=== PATIENT | female | born 1970 | race Caucasian/White ===

== ENCOUNTER 2024-11-19 21:27 | Inpatient (IN) | payer MEDICAID, SELFPAY ==
--- NOTE | ~2024-11-19 | XR_ITS ---
CLINICAL HISTORY: hx of TB Chest one view Comparison: None Findings: No consolidation, venous distention, pulmonary edema, pleural effusion or pneumothorax. Normal heart size and mediastinal contour. Mild midthoracic dextroscoliosis. Soft tissues and upper abdomen are unremarkable. IMPRESSION: No acute cardiopulmonary process or features of active inflammation. This document has been electronically signed by: Jass Barreto MD on 11/20/2024 09:32:10
[2024-11-19 21:50] VITALS: BP 146/90; PULSE 84; RESP 16; TEMP 36.4; O2SAT 98
[2024-11-19] MEDS: Perphenazine 4 MG TABLET PO (23:19)
[2024-11-20 01:03] VITALS: BMI 24.7
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
[2024-11-20 07:36] VITALS: BP 136/88; PULSE 80; RESP 16; TEMP 36.4; O2SAT 99
[2024-11-20 07:49] LABS: Ammonia 36 umol/L (13-55)
[2024-11-20 08:00] VITALS: BP 136/88; PULSE 80; RESP 15; TEMP 36.4; O2SAT 99
[2024-11-20 08:44] LABS: Estimated Average Glucose 108 mg/dL; Hemoglobin A1C 114.9114 umol/L; Hemoglobin A1c % 5.4 % (<6.0); Total Hemoglobin (HGBA1C) 3236.6228 umol/L
[2024-11-20 09:16] LABS: Alanine Aminotransferase 16 U/L (0-31); Alkaline Phosphatase 65 U/L (39-117); Anion Gap 9 (12-20); Aspartate Amino Transferase 28 U/L (5-31); Bilirubin Total 1.3 mg/dL (0.0-1.0); Blood Urea Nitrogen 13 mg/dL (9-16); Calcium 8.6 mg/dL (8.4-10.2); Carbon Dioxide 28 mmol/L (22-29); Chloride 108 mmol/L (96-108); Cholesterol 186 mg/dL (<200); Creatinine Clr Calc Pharmacy 75.6; Estimated Glomerular Filt Rate > 60; Glucose Random 91 mg/dL (60-115); HDL Cholesterol 62 mg/dL (>40); LDL Cholesterol Calculated 109 mg/dL (<100); Potassium 3.7 mmol/L (3.3-5.1); Sodium 141 mmol/L (135-145); Total Protein 6.9 g/dL (6.5-8.0); Triglycerides 78 mg/dL (<150)
[2024-11-20] MEDS: Thiamine HCL 100 MG TABLET PO (09:29)
[2024-11-20] MEDS: Folic Acid 1 MG TABLET PO (09:29)
[2024-11-20] MEDS: Multivitamin TABLET 1 TAB PO (09:30)
[2024-11-20] MEDS: Perphenazine 4 MG TABLET PO (09:30)
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
--- NOTE | 2024-11-20 12:32 | PC.NURSE ---
This teletypewriter operator texted Dr. Edouard, hospitalist, to inquire about his plans to come to the unit today, for the ordered consult. This provider stated that he is aware.
[2024-11-20 20:00] VITALS: BP 126/75; PULSE 79; RESP 18; TEMP 36.4; O2SAT 98
[2024-11-20] MEDS: Perphenazine 8 MG TABLET PO (22:13)
[2024-11-21 08:00] VITALS: BP 123/83; PULSE 63; RESP 18; TEMP 36.1; O2SAT 99
[2024-11-21] MEDS: Folic Acid 1 MG TABLET PO (09:06)
[2024-11-21] MEDS: Multivitamin TABLET 1 TAB PO (09:06)
[2024-11-21] MEDS: Thiamine HCL 100 MG TABLET PO (09:06)
[2024-11-21] MEDS: Perphenazine 8 MG TABLET PO (09:06)
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
--- NOTE | 2024-11-21 18:04 | PC.NURSE ---
Patient signed 3 day notice today.
[2024-11-21 20:00] VITALS: BP 125/74; PULSE 67; RESP 16; TEMP 36.8; O2SAT 99
[2024-11-22 07:35] VITALS: BP 131/85; PULSE 60; RESP 16; TEMP 36.6; O2SAT 98
[2024-11-22] MEDS: Thiamine HCL 100 MG TABLET PO (09:20)
[2024-11-22] MEDS: Multivitamin TABLET 1 TAB PO (09:20)
[2024-11-22] MEDS: Folic Acid 1 MG TABLET PO (09:20)
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
[2024-11-22 20:00] VITALS: BP 135/71; PULSE 65; RESP 16; TEMP 36.6; O2SAT 98
[2024-11-22] MEDS: Perphenazine 2 MG TABLET 6 MG PO (20:33)
[2024-11-23 08:00] VITALS: BP 120/61; PULSE 71; RESP 16; TEMP 36.4; O2SAT 98
[2024-11-23] MEDS: Folic Acid 1 MG TABLET PO (08:37)
[2024-11-23] MEDS: Multivitamin TABLET 1 TAB PO (08:37)
[2024-11-23] MEDS: Thiamine HCL 100 MG TABLET PO (08:37)
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
[2024-11-23 20:00] VITALS: BP 137/86; PULSE 81; RESP 18; TEMP 36.3; O2SAT 98
[2024-11-23] MEDS: Perphenazine 2 MG TABLET 6 MG PO (20:20)
[2024-11-24 07:38] VITALS: BP 129/72; PULSE 51; RESP 16; TEMP 36.7; O2SAT 99
[2024-11-24] MEDS: Multivitamin TABLET 1 TAB PO (08:41)
[2024-11-24] MEDS: Folic Acid 1 MG TABLET PO (08:41)
[2024-11-24] MEDS: Thiamine HCL 100 MG TABLET PO (08:41)
== END 2024-11-24 14:20 | disposition home or self-care (01) | DRG 750 ==
PROVIDERS: Psychiatry & Neurology Psychiatry; Admitting Provider Psychiatry & Neurology Psychiatry; Visit Provider Psychiatry & Neurology Psychiatry
DX: F25.0 Schizoaffective disorder, bipolar type (principal); F43.10 Post-traumatic stress disorder, unspecified; Z79.899 Other long term (current) drug therapy
CPT/HCPCS: 36415; 71045; 80053; 80061; 82140; 83036; 84443

== ENCOUNTER 2024-11-19 21:27 | Outpatient (BNV) | payer MEDICAID, SELFPAY | END 2024-11-20 09:00 | PROVIDERS: Admitting Provider Psychiatry & Neurology Psychiatry; Visit Provider Radiology Diagnostic Radiology | DX: F25.0 Schizoaffective disorder, bipolar type (principal) | CPT/HCPCS: 71045 ==

== ENCOUNTER → 2024-11-19 21:27 | Outpatient (BNV) | payer OTHER, SELFPAY | PROVIDERS: Admitting Provider Psychiatry & Neurology Psychiatry; Visit Provider Psychiatry & Neurology Psychiatry | DX: F25.0 Schizoaffective disorder, bipolar type (principal) | CPT/HCPCS: 99232 ==

== ENCOUNTER → 2024-11-19 21:27 | Outpatient (BNV) | payer MEDICAID, SELFPAY | PROVIDERS: Admitting Provider Psychiatry & Neurology Psychiatry; Visit Provider Student in an Organized Health Care Education/Training Program | DX: Z00.8 Encounter for other general examination (principal) | CPT/HCPCS: 99222 ==